=== PATIENT | male | born 1960 | race Caucasian/White ===

== ENCOUNTER 2021-11-17 04:20 | Day surgery (SDC) | payer MEDICARE, OTHER ==
[2021-11-14 13:49] VITALS: BMI 36.5
[2021-11-17] MEDS ORDERED: MIDAZOLAM HCL 2 MG/2 ML SINGLE DOSE VIAL ONE (10:09)
[2021-11-17 13:32] VITALS: BP 132/78; PULSE 61; TEMP 97.8
== END 2021-11-17 13:15 | disposition home or self-care (01) ==
LOC: JASU-SURG 04:20
PROVIDERS: ATTEND Urology
PROC: 0TF4XZZ Fragmentation in Left Kidney Pelvis, External Approach (ICD-10-PCS; principal; 2021-11-17 10:00)
DX: N20.0 Calculus of kidney (principal)
CPT/HCPCS: 82962

== ENCOUNTER 2022-10-20 13:21 | Emergency (ER) | payer MEDICARE, OTHER ==
[2022-10-20 13:29] VITALS: RESP 16; TEMP 97.8; BMI 38.1
[2022-10-20] MEDS ORDERED: ACETAMINOPHEN 1000 MG/100 ML BAG IVPB ONE (14:23)
[2022-10-20] MEDS ORDERED: DEXAMETHASONE 4 MG TABLET (FP) PO ONE (15:50)
[2022-10-20] MEDS ORDERED: LIDOCAINE 5% TOPICAL PATCH TP ONE (15:50)
[2022-10-20] MEDS ORDERED: KETOROLAC TROMETHAMINE 30 MG/1 ML VIAL IM ONE (15:50)
[2022-10-20 16:12] LABS: BASO % 0.5 % (0-2.0); EOS % 5.7 % (0-4.5); HEMATOCRIT 38.3 % (35.4-49); HEMOGLOBIN 12.8 GM/dL (11.7-16.9); LYMPH % 29.8 % (8-40); MCH 26.2 pg (25.7-33.7); MCHC 33.5 g/dl (32.0-35.9); MEAN CELL VOLUME 78.2 fl (80-96); MEAN PLT VOLUME 8.5 fl (7.5-11.1); MONO % 8.6 % (3.8-10.2); NEUT % 55.4 % (42.8-82.8); PLATELET COUNT 250 10^3/uL (134-434); WHITE BLOOD COUNT 8.9 K/mm3 (4.0-10.0)
[2022-10-20] MEDS ORDERED: KETOROLAC TROMETHAMINE 30 MG/1 ML VIAL ONE (16:14)
[2022-10-20] MEDS ORDERED: LIDOCAINE 5% TOPICAL PATCH ONE (16:14)
[2022-10-20] MEDS ORDERED: DEXAMETHASONE 4 MG TABLET (FP) ONE (16:14)
[2022-10-20 16:36] LABS: BLOOD UREA NITROGEN 10.7 mg/dL (7-18); CALCIUM 8.9 mg/dL (8.5-10.1)
[2022-10-20 16:37] LABS: ALBUMIN 3.6 g/dl (3.4-5.0)
[2022-10-20 16:40] LABS: CREATININE 0.7 mg/dL (0.55-1.3)
[2022-10-20 16:41] LABS: TOT PROT 6.8 g/dl (6.4-8.2)
[2022-10-20 16:50] VITALS: BP 125/58; PULSE 57
[2022-10-20 16:58] LABS: BILIRUBIN,TOTAL 0.2 mg/dL (0.2-1)
[2022-10-20] MEDS ORDERED: LIDOCAINE PATCH REMOVAL MC SCH (22:00)
== END 2022-10-20 19:41 | disposition home or self-care (01) ==
LOC: JER 13:21
PROC: 3E0233Z Introduction of Anti-inflammatory into Muscle, Percutaneous Approach (ICD-10-PCS; principal; 2022-10-20)
DX: M54.12 Radiculopathy, cervical region (principal)
CPT/HCPCS: 36415; 71046-TC-FY; 72125-TC; 80053; 84484; 85025; 93005; 93010; 99285-25

== ENCOUNTER 2024-01-20 17:41 | Emergency (ER) | payer MEDICARE, OTHER ==
[2024-01-20 17:54] VITALS: BP 124/62; PULSE 60; RESP 19; TEMP 98.8; BMI 36.9
[2024-01-20] MEDS ORDERED: traMADol HCL 50 MG TABLET ONE (20:13)
[2024-01-20] MEDS: traMADol HCL 50 MG TABLET PO ONE (20:15)
[2024-01-20] MEDS ORDERED: KETOROLAC TROMETHAMINE 15 MG/ML VIAL ONE (20:45)
[2024-01-20] MEDS ORDERED: ACETAMINOPHEN INJECTION 100 ML IVPB ONE (20:45)
[2024-01-20] MEDS: SODIUM CHLORIDE 1,000 ML IV STA (20:52)
[2024-01-20] MEDS: ACETAMINOPHEN 1000 MG/100 ML BAG IVPB ONE (20:52)
[2024-01-20] MEDS: KETOROLAC TROMETHAMINE 15 MG/ML VIAL IVPUSH ONE (20:53)
[2024-01-20 21:07] LABS: HIV INTERPRETATION NEGATIVE (NEGATIVE)
[2024-01-20] MEDS ORDERED: MORPHINE SULFATE 2 MG/ML SYRINGE ONE (21:56)
[2024-01-20] MEDS: morphine CARPU-JECT 2 MG/1 ML DISP.SYRIN IVPUSH ONE (21:59)
== END 2024-01-20 22:40 | disposition home or self-care (01) ==
LOC: JER 17:41
PROC: 3E033NZ Introduction of Analgesics, Hypnotics, Sedatives into Peripheral Vein, Percutaneous Approach (ICD-10-PCS; principal; 2024-01-20)
PROC: 3E0333Z Introduction of Anti-inflammatory into Peripheral Vein, Percutaneous Approach (ICD-10-PCS; 2024-01-20)
PROC: 3E033NZ Introduction of Analgesics, Hypnotics, Sedatives into Peripheral Vein, Percutaneous Approach (ICD-10-PCS; 2024-01-20)
PROC: 3E0337Z Introduction of Electrolytic and Water Balance Substance into Peripheral Vein, Percutaneous Approach (ICD-10-PCS; 2024-01-20)
DX: M54.12 Radiculopathy, cervical region (principal); R51.9 Headache, unspecified; M54.2 Cervicalgia; H53.8 Other visual disturbances; G89.29 Other chronic pain
CPT/HCPCS: 36415; 86803; 87389; 96361; 96374; 96375; 99284-25; J0131